=== PATIENT | female | born 1930 | race Caucasian/White ===

== ENCOUNTER 2017-09-19 11:42 | Emergency (ER) | payer MEDICARE, OTHER ==
[~2017-09-19] VITALS: Ht 157.5 cm; Wt 86.6 kg
[~2017-09-19 11:42] MED LIST: ATOR20TA PO; CARV12.5 PO; ESOM40CA PO; FURO-144 PO; LINA145C PO; METF500T PO; METO5SOL2 PO; OMEG1CAP55 PO; PARO25TA16 PO; PREG25CA PO; REPA2TAB PO; SIMV20TA2 PO; VALS80TA2 PO
--- NOTE | 2017-09-19 11:45 | NUR ---
PRESENTS TO ER C/O RIGHT HAND PAIN/SWELLING S/P GLF. DENIES LOC. RIGHT HAND, IS BRUISED AND SWOLLEN. NO OTHER TRAUMA NOTED. A/OX 4. BREAHTING EVEN AND UNLABORED. NO SOB. VITALS STABLE. SAFETY AND COMFORT MEASURES IN PLACE. AWAITING MD ORDERS.
[2017-09-19] MEDS ORDERED: IBUPROFEN 600 MG TABLET PO ONE ×2 (12:00→12:05)
--- NOTE | 2017-09-19 12:11 | NUR ---
MEDICATED PATIENT PER MD ORDERS.
--- NOTE | 2017-09-19 13:07 | NUR ---
RIGHT VOLAR SPLINT APPLIED. NO COMPLICATIONS NOTED.
[2017-09-19 13:38] VITALS: BP 168/86
--- NOTE | 2017-09-19 13:39 | NUR ---
Patient discharged to home in stable condition. Written and verbal after care instructions given. Patient verbalizes understanding of instruction.
== END 2017-09-19 13:39 | disposition home or self-care (01) ==
LOC: ER 11:44
DX: S62.101A Fracture of unspecified carpal bone, right wrist, initial encounter for closed fracture (principal); E11.9 Type 2 diabetes mellitus without complications; I10 Essential (primary) hypertension; Z88.5 Allergy status to narcotic agent; W01.0XXA Fall on same level from slipping, tripping and stumbling without subsequent striking against object, initial encounter; Y93.89 Activity, other specified; Y92.89 Other specified places as the place of occurrence of the external cause; Y99.8 Other external cause status
CPT/HCPCS: 29125; 73130; 99284; A4606; Z7610